=== PATIENT | male | born 1980 | race Caucasian/White ===

== ENCOUNTER → 2018-07-03 | Outpatient (REF) ==
[~2018-07-03] MED LIST: ANTABUSE500 MG PO; ATIVAN; ATIVAN1 MG PO; B-1100 MG PO; CARAFATE 1GM1 G PO; CELEXA 20MG20 MG/TAB PO; DESYREL 100MG100 MG PO; FLAGYL500 MG PO; LEVAQUIN 750MG750 M1 PO; MS CONTIN 115 MG/TAB PO; NO HOME MEDICATIONS; NORCO 325 MG-51 TAB PO; PREDNISONE10 MG; SENOKOT8.6 MG PO; TOPROL XL 50MG50 MG PO; ZOFRAN8 MG PO
== END ==
LOC: ZLAB.WCH 18:23
DX: Z01.89 Encounter for other specified special examinations (principal)

== ENCOUNTER 2018-07-07 10:18 | Emergency (ER) | payer SELFPAY ==
[~2018-07-07] VITALS: Ht 180.3 cm; Wt 105.5 kg
[2018-07-07 10:21] VITALS: TEMP 97.9
[2018-07-07 10:56] LABS: BASO % 0.5 % (0.0-2.0); EOS % 0.1 % (0-4.0); GRAN # 5.2 (1.4-6.5); GRAN % 69.3 % (42.2-75.2); HEMATOCRIT 39.2 % (42.0-52.0); HEMOGLOBIN 13.1 g/dl (13.5-18.0); LYMPH # 1.6 (1.2-3.4); MEAN CELL VOLUME 86 fl (80.0-100.0); MEAN CORPUSCULAR HEMOGLOBIN 29 pg (27.0-31.0); MEAN CORPUSCULAR HGB CONC 33 g/dl (33.0-37.0); MEAN PLATELET VOLUME 9.5 fl (7.4-10.4); MONO # 0.7 (0.1-0.6); PLATELET COUNT 250 K/mm3 (130-400); RED BLOOD COUNT 4.56 M/mm3 (4.20-5.60)
[2018-07-07 11:08] LABS: ALBUMIN 3.9 gm/dL (3.5-5.0); BILIRUBIN,TOTAL 0.2 mg/dL (0.0-1.0); C-REACTIVE PROTEIN 3.5 mg/dL (0.0-0.9); CALCIUM 9.2 mg/dL (8.4-10.2); CREATININE, serum 0.93 mg/dL (0.66-1.25); POTASSIUM 4.3 mmol/L (3.4-5.0); TOTAL PROTEIN 7.9 gm/dL (6.4-8.2)
[2018-07-07 11:37] LABS: COLLECTION METHOD CLEAN CATCH
[2018-07-07 11:48] LABS: AMORPHOUS CRYSTAL Present /uL; PH 6 (5-8); SQUAMOUS EPITHELIAL None Seen /hpf; URINE APPEARANCE Clear; URINE BACTERIA None Seen /hpf; URINE BILIRUBIN Negative (NEGATIVE); URINE BLOOD Negative (NEGATIVE); URINE COLOR Yellow; URINE GLUCOSE Negative (NEGATIVE); URINE KETONE Negative (NEGATIVE); URINE LEUKOCYTE ESTERASE Negative (NEGATIVE); URINE NITRATE Negative (NEGATIVE); URINE PROTEIN(semi-quant) Negative (NEGATIVE); URINE RBC 0-2 /hpf; URINE UROBILINOGEN Negative (NEGATIVE)
[2018-07-07] MEDS ORDERED: PRILOSEC 20MG20 MG PO (12:09)
[2018-07-07 12:19] VITALS: BP 131/91; PULSE 93
== END 2018-07-07 12:20 | disposition home or self-care (01) ==
LOC: COL.ER 10:18
PROVIDERS: Physician Assistant
DX: R10.13 Epigastric pain (principal); F17.210 Nicotine dependence, cigarettes, uncomplicated; Z88.0 Allergy status to penicillin

== ENCOUNTER 2022-07-12 09:22 | Emergency (ER) | payer SELFPAY ==
[~2022-07-12] VITALS: Ht 180.3 cm; Wt 90.9 kg
[~2022-07-12 09:22] MED LIST changes: +PRILOSEC 20MG20 MG PO
[2022-07-12 09:27] VITALS: TEMP 97.8
[2022-07-12 10:51] LABS: BASO % 0.7 % (0.0-2.0); EOS # 0.2 K/mm3 (0.0-0.7); EOS % 2.9 % (0.0-4.0); GRAN # 3.2 K/mm3 (1.4-6.5); GRAN % 57.7 % (42.2-75.2); HEMATOCRIT 43.1 % (42.0-52.0); LYMPH # 1.5 K/mm3 (1.2-3.4); LYMPH % 27.7 % (20.0-51.0); MEAN CELL VOLUME 86 fl (80.0-100.0); MEAN CORPUSCULAR HEMOGLOBIN 30 pg (27-31); MEAN CORPUSCULAR HGB CONC 35 g/dl (33.0-37.0); MEAN PLATELET VOLUME 10.1 fl (7.4-10.4); MONO # 0.6 K/mm3 (0.1-0.6); MONO % 10.6 % (1.7-9.3); PLATELET COUNT 217 K/mm3 (130-400); RED BLOOD COUNT 5.04 M/mm3 (4.20-5.60); REDCELL DISTRIBUTION WIDTH-CV 11.9 % (11.5-14.5)
[2022-07-12 11:04] LABS: ACETONE,SERUM NEGATIVE; ALANINE AMINOTRANSFERASE 16 U/L (0-55); ALBUMIN 3.4 gm/dL (3.5-5.0); ALKALINE PHOSPHATASE 104 U/L (40-150); ANION GAP 11 mmol/L (7-16); AST,SGOT 13 U/L (5-34); BILIRUBIN,TOTAL 0.3 mg/dL (0.2-1.2); BLOOD UREA NITROGEN 18 mg/dL (9-21); CALCIUM 9.4 mg/dL (8.4-10.2); CARBON DIOXIDE 21 mmol/L (22-29); CHLORIDE 99 mmol/L (98-107); CREATININE, serum 1.09 mg/dL (0.72-1.25); LIPASE 31 U/L (8-78); POTASSIUM 4.7 mmol/L (3.5-4.5); SODIUM 131 mmol/L (136-145); TOTAL PROTEIN 7.6 gm/dL (6.2-8.1)
[2022-07-12 11:05] LABS: GLUCOSE 403 mg/dL (70-99)
[2022-07-12] MEDS ORDERED: COZAAR 50MG50 MG/TAB PO (11:10)
[2022-07-12] MEDS ORDERED: GLUCOPHAGE500 MG/TAB PO (11:11)
[2022-07-12 11:19] LABS: TROPONIN-I < 0.010 ng/mL (0.00-0.033)
[2022-07-12 11:53] VITALS: BP 162/88; PULSE 96
== END 2022-07-12 11:53 | disposition home or self-care (01) ==
LOC: COL.ER 09:22
PROVIDERS: Physician Assistant
DX: E11.65 Type 2 diabetes mellitus with hyperglycemia (principal); T38.3X6A Underdosing of insulin and oral hypoglycemic [antidiabetic] drugs, initial encounter; I10 Essential (primary) hypertension; F17.210 Nicotine dependence, cigarettes, uncomplicated; Z79.4 Long term (current) use of insulin; Z91.14 Patient's other noncompliance with medication regimen; Z28.310 Unvaccinated for COVID-19; Z91.128 Patient's intentional underdosing of medication regimen for other reason
CPT/HCPCS: J1815